=== PATIENT | female | born 1960 | race Caucasian/White ===

== ENCOUNTER → 2017-08-20 | Outpatient (CLI) | payer OTHER | LOC: MC.RAD 07-19 13:00 | DX: Z12.31 Encounter for screening mammogram for malignant neoplasm of breast (principal) ==

== ENCOUNTER → 2017-08-24 | Outpatient (CLI) | payer OTHER | LOC: MC.RAD 12:57 | DX: N60.12 Diffuse cystic mastopathy of left breast (principal); R92.2 Inconclusive mammogram ==

== ENCOUNTER → 2018-05-10 | Outpatient (CLI) | payer OTHER ==
[2018-05-10 11:01] LABS: HEMOGLOBIN 12.8 g/dl (12.5-16.0); MEAN CELL VOLUME 89 fl (80.0-100.0); MEAN CORPUSCULAR HEMOGLOBIN 29 pg (27.0-31.0); MEAN CORPUSCULAR HGB CONC 33 g/dl (33.0-37.0); MEAN PLATELET VOLUME 8.9 fl (7.4-10.4); PLATELET COUNT 321 K/mm3 (130-400); RED BLOOD COUNT 4.36 M/mm3 (4.10-5.30); REDCELL DISTRIBUTION WIDTH-CV 13.6 % (11.5-14.5)
[2018-05-10 11:17] LABS: ALBUMIN 4.3 gm/dL (3.5-5.0); BILIRUBIN,TOTAL 0.5 mg/dL (0.0-1.0); CALCIUM 9.3 mg/dL (8.4-10.2); CHOLESTEROL RISK RATIO 3.9; CREATININE, serum 0.67 mg/dL (0.52-1.25); TOTAL PROTEIN 7.8 gm/dL (6.4-8.2)
[2018-05-10 11:47] LABS: THYROID STIMULATING HORMONE 4.92 uIU/mL (0.465-4.680)
== END ==
LOC: COL.LAB 10:30
DX: Z79.899 Other long term (current) drug therapy (principal)

== ENCOUNTER → 2020-03-10 | Outpatient (CLI) | payer OTHER | LOC: MC.RAD 02-18 11:45 | DX: Z12.31 Encounter for screening mammogram for malignant neoplasm of breast (principal) ==

== ENCOUNTER 2020-09-24 08:12 | Day surgery (SDC) | payer OTHER ==
[~2020-09-24] VITALS: Ht 162.6 cm; Wt 86.6 kg
[2020-09-24] MEDS ORDERED: LEVOXYL0.112 MG PO (09:05)
[2020-09-24] MEDS ORDERED: LIPITOR20 MG PO (09:06)
[2020-09-24] MEDS ORDERED: EFFEXOR-XR150 MG PO (09:06)
[2020-09-24] MEDS ORDERED: ADDERALL XR30 MG PO (09:06)
[2020-09-24] MEDS ORDERED: ALDACTONE50 MG PO (09:07)
[2020-09-24 09:26] VITALS: BP 122/80; PULSE 89; TEMP 98.4
[2020-09-24 11:00] VITALS: BP 115/73; PULSE 78; TEMP 98
--- NOTE | 2020-09-24 11:00 | NUR ---
Patient arrives [place] [facility], denies pain or nausea. Patient ambulated from cart to chair with standby assist and without any complications. Patient monitor applied. Patient's daughter brought to bedside. Patient given soda and crackers.
[2020-09-24 11:15] VITALS: BP 126/81; PULSE 78
--- NOTE | 2020-09-24 11:20 | NUR ---
Patient tolerated food and drink without any complications or nausea. Vitals stable.
[2020-09-24 11:30] VITALS: BP 145/86; PULSE 81
--- NOTE | 2020-09-24 11:30 | NUR ---
Dr Pritchett into see patient at this time to go over procedure results.
--- NOTE | 2020-09-24 11:55 | NUR ---
Dismissal instructione gone over with patient and patient's daughter. Both verbalize understanding and all questions answered.
--- NOTE | 2020-09-24 12:00 | NUR ---
Patient discharged to private vehicle at patient enterance with wheelchair without any complications. Patient and family leave thanking staff for services.
[2020-09-24 12:50] VITALS: BP 121/79; PULSE 81; TEMP 98
== END 2020-09-24 12:00 | disposition home or self-care (01) ==
LOC: SDCO 08:12
DX: Z12.11 Encounter for screening for malignant neoplasm of colon (principal); D12.3 Benign neoplasm of transverse colon; K63.89 Other specified diseases of intestine; E07.9 Disorder of thyroid, unspecified; E78.5 Hyperlipidemia, unspecified; F32.9 Major depressive disorder, single episode, unspecified; Z20.822 Contact with and (suspected) exposure to COVID-19; Z88.1 Allergy status to other antibiotic agents; Z88.0 Allergy status to penicillin; Z79.890 Hormone replacement therapy
CPT/HCPCS: J2704; J7120

== ENCOUNTER → 2020-09-30 | Outpatient (CLI) | payer OTHER ==
[~2020-09-30] MED LIST: ADDERALL XR30 MG PO; ALDACTONE50 MG PO; EFFEXOR-XR150 MG PO; LEVOXYL0.112 MG PO; LEVOXYL0.125 MG PO; LIPITOR20 MG PO; NORCO 325 MG-51 TAB PO; SINGULAIR 110 MG/TAB PO
== END ==
LOC: COL.RAD 07:36
DX: Z01.812 Encounter for preprocedural laboratory examination (principal); K83.9 Disease of biliary tract, unspecified; R68.89 Other general symptoms and signs; Z90.710 Acquired absence of both cervix and uterus
CPT/HCPCS: Q9967

== ENCOUNTER 2020-10-22 08:30 | Day surgery (SDC) | payer OTHER ==
[~2020-10-22] VITALS: Ht 162.6 cm; Wt 88.0 kg
[~2020-10-22 08:30] MED LIST changes: -LEVOXYL0.125 MG PO; -NORCO 325 MG-51 TAB PO; -SINGULAIR 110 MG/TAB PO
[2020-10-22 09:19] VITALS: BP 118/70; PULSE 97; TEMP 98.5
[2020-10-22] MEDS ORDERED: LEVOXYL0.125 MG PO (09:26)
[2020-10-22] MEDS ORDERED: SINGULAIR 110 MG/TAB PO (09:27)
--- NOTE | 2020-10-22 09:29 | NUR ---
TO RM 7 AT 0847- CALL LIGHT IN REACH DAUGHTER AT BEDSIDE.
[2020-10-22] MEDS ORDERED: NORCO 325 MG-51 TAB PO (11:10)
[2020-10-22 12:45] VITALS: BP 105/57; PULSE 86; TEMP 98.5
--- NOTE | 2020-10-22 12:45 | NUR ---
Pt to [facility] via cart from PACU. Pt awake and alert. Denies pain or nausea. Bandaids to abdomen are clean, dry, and intact x3. Friend in room. Coffee given per pt request. Will continue to monitor. Call light within reach.
[2020-10-22 13:00] VITALS: BP 109/86; PULSE 92
--- NOTE | 2020-10-22 13:00 | NUR ---
Pt continues to rest. Muffin given per pt request. Will continue to monitor. Call light within reach.
[2020-10-22 13:15] VITALS: BP 109/66; PULSE 93
--- NOTE | 2020-10-22 13:15 | NUR ---
Pt continues to rest. Denies needs. Call light within reach.
[2020-10-22 13:25] VITALS: TEMP 99.1
[2020-10-22 13:30] VITALS: BP 107/68; PULSE 89
--- NOTE | 2020-10-22 13:30 | NUR ---
Pt continues to rest. Denies needs. Call light within reach.
--- NOTE | 2020-10-22 14:00 | NUR ---
Discharge instructions reviewed. Pt voices understanding. IV site discontinued with all parts intact. Pt up to restroom. Voids without difficulties. Pt dressing. Call light within reach.
--- NOTE | 2020-10-22 14:15 | NUR ---
Pt escorted to private car via wheel chair. Pt accompanied home by her daughter.
== END 2020-10-22 14:15 | disposition home or self-care (01) ==
LOC: SDCO 08:30
DX: K35.80 Unspecified acute appendicitis (principal); K38.8 Other specified diseases of appendix; E78.00 Pure hypercholesterolemia, unspecified; E07.9 Disorder of thyroid, unspecified; F32.9 Major depressive disorder, single episode, unspecified; F90.9 Attention-deficit hyperactivity disorder, unspecified type; Z20.822 Contact with and (suspected) exposure to COVID-19; Z90.89 Acquired absence of other organs; Z79.899 Other long term (current) drug therapy; Z88.0 Allergy status to penicillin; Z88.2 Allergy status to sulfonamides; Z79.890 Hormone replacement therapy; Z80.42 Family history of malignant neoplasm of prostate; Z83.3 Family history of diabetes mellitus; Z82.49 Family history of ischemic heart disease and other diseases of the circulatory system
CPT/HCPCS: J0690; J1100; J1885; J2405; J2704; J3010; J7120

== ENCOUNTER → 2021-03-03 | Outpatient (REF) ==
[~2021-03-03] MED LIST changes: +LEVOXYL0.125 MG PO; +NORCO 325 MG-51 TAB PO; +SINGULAIR 110 MG/TAB PO
== END ==
LOC: COL.LAB 07:54
DX: Z20.822 Contact with and (suspected) exposure to COVID-19 (principal)